=== PATIENT | female | born 1990 | race African-American/Black ===

== ENCOUNTER 2025-07-19 21:27 | Emergency (ER) | payer MEDICAID ==
[~2025-07-19] VITALS: Ht 154.9 cm; Wt 64.0 kg
[2025-07-19 21:36] VITALS: TEMP 36.7; O2SAT 98
[2025-07-19] MEDS: KETOROLAC 15MG/ML VIAL IM ONE (22:57)
[2025-07-19] MEDS ORDERED: NAPR-1176 MT (23:20)
[2025-07-19] MEDS ORDERED: LIDO-53 TP (23:20)
[2025-07-19 23:38] VITALS: BP 125/88; PULSE 73; RESP 12; O2SAT 100
== END 2025-07-19 23:40 | disposition home or self-care (01) ==
LOC: ER 21:27
DX: M25.512 Pain in left shoulder (principal); R51.9 Headache, unspecified; R07.81 Pleurodynia
CPT/HCPCS: 99284; 81025; 71101; 73030; J1885